=== PATIENT | female | born 1970 | race Caucasian/White ===

== ENCOUNTER 2021-01-21 09:18 | Observation (INO) ==
[2021-01-21] MEDS ORDERED: Isovue-370 500 ML BOTTLE IVP ONE (09:21)
[2021-01-21 09:44] LABS: Bilirubin,Urine Negative (Negative); Blood,Urine Negative (Negative); Clarity,Urine Clear (Clear); Color,Urine Light-Yellow (Yellow); Glucose,Urine (UA) Normal (Normal); Ketones,Urine Negative (Negative); Leukocyte Esterase,Urine Negative (Negative); Nitrite,Urine Negative (Negative); PH,Urine 6.5 pH Units (5.0-8.0); Protein,Urine Negative (Neg-Trace); Urobilinogen,Urine Normal (Normal)
[2021-01-21 10:03] LABS: Basophils # 0.1 K/mcL (0.0-0.2); Basophils % 0.6 %; Eosinophils # 0.4 K/mcL (0.0-0.6); Eosinophils % 3.9 %; Hematocrit 47.4 % (35.3-44.9); Hemoglobin 15.2 g/dL (11.5-15.4); Immature Granulocytes % 0.5 % (0-4); Lymphocytes # 3.2 K/mcL (0.6-4.6); Lymphocytes % 29.6 %; Mean Corpuscular HGB Conc 32.1 g/dL (31.6-35.5); Mean Corpuscular Volume 87.3 fL (83.0-100.0); Mean Platelet Volume 9.3 fL (9.4-12.4); Monocytes # 0.4 K/mcL (0.0-1.3); Neutrophils # 6.7 K/mcL (1.6-8.9); Platelet Count 370 K/mcL (140-400); Red Blood Count 5.43 M/mcL (3.82-4.97); Red Cell Distribution Width 12.8 % (11.5-14.5); Segmented Neutrophils % 61.4 %; White Blood Count 10.9 K/mcL (4.3-11.1)
[2021-01-21 10:17] LABS: INR 1.1; Prothrombin Time 12.5 Seconds (9.4-12.1)
[2021-01-21] MEDS ORDERED: Morphine Sulfate 2 MG/ML SYRINGE IVP ONE (10:17)
[2021-01-21] MEDS ORDERED: 0.9 % Sodium Chloride 1,000 ML IVC ONE (10:17)
[2021-01-21] MEDS ORDERED: Ondansetron 4 MG/2 ML VIAL IVP ONE (10:17)
[2021-01-21 10:25] LABS: Alanine Aminotransferase 17 Units/L (7-52); Albumin 4.4 g/dL (3.5-5.7); Albumin/Globulin Ratio 1.4 (1.1-2.2); Alkaline Phosphatase 84 Units/L (34-104); Aspartate Amino Transferase 18 Units/L (13-39); BUN/Creatinine Ratio 8 (6-26); Bilirubin,Indirect 0.3 mg/dL (0.0-1.0); Bilirubin,Total 0.3 mg/dL (0.3-1.0); Blood Urea Nitrogen 7 mg/dL (6-20); Carbon Dioxide 26 mEq/L (23-29); Chloride 104 mEq/L (98-107); Globulin 3.2 g/dL (2.4-3.5); Glucose 129 mg/dL (70-105); Lipase 58 Units/L (11-82); Osmolality,Calculated 286 (280-300); Potassium 3.3 mEq/L (3.5-5.1); Sodium 138 mEq/L (136-145); Total Protein 7.6 g/dL (6.4-8.9); Troponin I < 0.03 ng/mL (< 0.04); eGFR For African Americans > 60 (> 60); eGFR For Non-African Americans > 60 (> 60)
[2021-01-21] MEDS ORDERED: Ondansetron 4 MG/2 ML VIAL ONE (13:08)
[2021-01-21] MEDS ORDERED: *HR* FentaNYL (PF) 100 MCG/2 ML VIAL ONE (13:08)
[2021-01-21] MEDS ORDERED: *HR* Rocuronium Bromide 50 MG/5 ML VIAL ONE (13:08)
[2021-01-21] MEDS ORDERED: *HR* Midazolam HCl 2 MG/2 ML VIAL ONE (13:08)
[2021-01-21] MEDS ORDERED: *HR* Propofol 200 MG/20 ML VIAL IVP ONE (13:08)
[2021-01-21] MEDS ORDERED: Lidocaine HCL 4 ML Topical Solution (Laryng-O-Jet Kit Sterile Pak) TP ONE (13:08)
[2021-01-21] MEDS ORDERED: Lidocaine -MPF 2% 2 ML VIAL ONE (13:08)
[2021-01-21] MEDS ORDERED: Dexamethasone 4 MG/ML VIAL ONE (13:08)
[2021-01-21] MEDS ORDERED: Ondansetron 4 MG/2 ML VIAL IVP PRN ×3 (13:18→15:25)
[2021-01-21] MEDS ORDERED: *HR* Meperidine 25 MG/ML SYRINGE IVP PRN ×2 (13:18→15:25)
[2021-01-21] MEDS ORDERED: *HR* HYDROmorphone (PF) 1 MG/ML SYRINGE IVP PRN ×2 (13:18→15:25)
[2021-01-21] MEDS ORDERED: CefOXitin 1,000 MG VIAL ONE (13:21)
[2021-01-21] MEDS ORDERED: cefOXitin 2,000 MG in Water for inj. (sterile) 20 ML IVP ONE ×2 (13:45→15:25)
[2021-01-21] MEDS ORDERED: CefOXitin 2,000 MG VIAL ONE (13:49)
[2021-01-21] MEDS ORDERED: *HR* PHENYLEPHRINE 1,000 MCG/10 ML SYRINGE IVP ONE (14:11)
[2021-01-21] MEDS ORDERED: Sugammadex Sodium 200 MG/2 ML VIAL IV ONE (14:30)
[2021-01-21] MEDS ORDERED: Ketorolac 30 MG/ML VIAL ONE (14:33)
[2021-01-21] MEDS ORDERED: *HR* OxyCODONE/APAP 5/325 TABLET PO PRN (15:25)
[2021-01-21] MEDS ORDERED: *HR* Metoprolol 5 MG/5 ML VIAL IVP PRN (15:25)
[2021-01-21] MEDS: 0.9 % Sodium Chloride 1,000 ML IVC SCH (15:53)
[2021-01-21] MEDS: Piperacillin/Tazobactam 3.375 GM in 0.9 % Sodium Chloride Mini Bag 100 ML IVPB SCH (16:36)
[2021-01-22] MEDS: Piperacillin/Tazobactam 3.375 GM in 0.9 % Sodium Chloride Mini Bag 100 ML IVPB SCH ×2 (00:39→07:56)
[2021-01-22] MEDS ORDERED: Ibuprofen 800 MG TABLET PO ONE (06:58)
[2021-01-22] MEDS: 0.9 % Sodium Chloride 1,000 ML IVC SCH (07:17)
[2021-01-22 07:52] VITALS: BP 124/80
[2021-01-22] MEDS ORDERED: Pregabalin 75 MG CAPSULE PO SCH (09:00)
== END 2021-01-22 09:11 | disposition home or self-care (01) ==
LOC: 3BNU 09:18 → EMEROOARM 09:18 → 3BNU 11:49
PROVIDERS: ADMIT Surgery; ATTEND Surgery